=== PATIENT | male | born 1990 | race Caucasian/White ===

== ENCOUNTER 2019-09-21 06:17 | Emergency (ER) | payer OTHER, SELFPAY ==
[2019-09-21 06:26] VITALS: BP 140/93; PULSE 99; RESP 16; TEMP 36.5; O2SAT 100
--- NOTE | 2019-09-21 06:49 | ED.DENTAL ---
HPI - Dental/Oral General Chief complaint: Dental/Oral Stated complaint: TOOTH PAIN Time Seen by Provider: 09/21/19 06:37 Source: patient History of Present Illness HPI Narrative: 29 yo male who presents with c/o left lower jaw pain and swelling starting on Thursday. Patient states he notice notice pain to tooth in lower jaw. He has swelling that has gradually worsened. He states he started taking some old Amoxicillin on Thursday and he has called to make an appointment with his dentist. He has come to ER today because he has worsening pain to left lower jaw and pain with swallowing. He denies fever, nausea or vomiting. He denies any difficulty breathing. Location: Tooth # (19) Onset (ago): day(s) (5) Duration: constant Severity: severe Relieving factors: NSAIDs Exacerbating factors: swallowing Context: history of dental caries Associated symptoms: gum swelling and pain with swallowing Related Data Allergies Allergy/AdvReac Type Severity Reaction Status Date / Time No Known Allergies Allergy Unverified 09/21/19 06:32 Review of Systems Review of Systems: All systems reviewed & are unremarkable except as noted in HPI and below Constitutional: Constitutional: Denies chills, Denies fever(s) and Denies weakness ENT: Denies vertigo and Denies sore throat Cardiovascular: Cardiovascular: Denies chest pain Respiratory: Respiratory: Denies cough and Denies dyspnea Gastrointestinal: Gastrointestinal: Denies nausea and Reports vomiting [facility] Past Medical History Medical History (Updated 09/21/19 @ 08:12 by Marifer Graf MD) Healthy adult Surgical History Surgical History (Updated 09/21/19 @ 07:29 by Marifer Graf MD) No history of previous surgery Social History Social History (Updated 09/21/19 @ 07:29 by Marifer Graf MD) Smoking packs per day: 0.5 Smoking cigarettes per day: 10.0 Smoking status: Current every day smoker Alcohol intake: current Alcohol use details: socially Substance use: never Exam Const: General: no acute distress and alert Orientation/consciousness: patient oriented x3 HENMT: Head: normocephalic and atraumatic General nose exam: Normal external nose present and Normal nares present Mouth: Yes Normal oral and palatal mucosa present, Yes lip normal, No tongue abnormal and No trismus Teeth and gingiva: abnormal tooth and associated gingiva (dental marleen and tenderness at tooth 19) and caries Throat: posterior oropharynx normal, tonsils normal and uvula midline Other: tenderness to left lower jaw , left submental with painful lymph node at angle, no swelling or tenderness to floor mouth Neck: Neck: lymphadenopathy Chest: Chest palpation & inspection: normal inspection of the chest Resp: Effort & Inspection: normal respiratory effort Auscultation: clear to auscultation bilaterally Skin: General skin exam: normal color Rashes: no rashes Neuro: General: patient oriented x3 and moves all extremities Course Course Emergency Course: Patient presented with left lower dental abscess. No site seen that can be I and D. He was given dose and IV antibiotics and pain medication. He states his pain has improved. HE states he has appointment with oral surgery on Thursday. He discussed return precautions. Vital Signs Vital signs: Vital Signs Temperature 97.7 F 09/21/19 06:26 Pulse Rate 99 09/21/19 06:26 Respiratory Rate 16 09/21/19 06:26 Blood Pressure 140/93 H 09/21/19 06:26 Pulse Oximetry 100 09/21/19 06:26 Temperature 97.7 F 09/21/19 06:26 Pulse Rate 95 09/21/19 08:28 Respiratory Rate 15 09/21/19 08:28 Blood Pressure 132/85 09/21/19 08:28 Pulse Oximetry 99 09/21/19 08:28 Discharge Plan Discharge Clinical Impression: Dental abscess Patient Disposition: Home, Self-Care Condition: Stable Instructions: Antibiotic Form, Dental Abscess (ED) Additional Instructions: Today you were started on antibiotic
[2019-09-21] MEDS: KETOROLAC 30 MG/ML VIAL (*BKC) IV PUSH (06:56)
[2019-09-21] MEDS: CLINDAMYCIN 600 MG/NS 50 ML 600 MG/50 ML PIGGYBACK 100 MG IVPB (07:17)
[2019-09-21 08:28] VITALS: BP 132/85; PULSE 95; RESP 15; O2SAT 99
== END 2019-09-21 08:31 | disposition home or self-care (01) ==
PROVIDERS: Emergency Provider General Practice
DX: K04.7 Periapical abscess without sinus (principal)
CPT/HCPCS: 96365; 96375; 99284; J1885

== ENCOUNTER 2021-11-06 13:30 | Outpatient (RCR) | payer MEDICAID, OTHER, SELFPAY ==
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
--- NOTE | 2021-11-15 12:01 | PCOTNOTE ---
Patient did not show up for scheduled appointment this date. Called patient, who did not answer, and left voicemail informing of missed appointment and reminded of next scheduled appointment.
--- NOTE | 2021-11-18 12:46 | PCOTNOTE ---
OCCUPATIONAL THERAPY DISCHARGE NOTIFICATION 11/18/21 Patient:Ryne Suresh Date of :1990 Patient has not returned for any further treatments since 11/06/2021, therefore he will be discharged at this time. Patient?s initial visit was on 10/24/2021 and he had a total of 2 subsequent treatment visits. Unfortunately he is being discharged due to poor therapy attendance. No formal re-assessment was able to be completed as he did not show today for his re-evaluation appointment. Thank you for referring this patient to [facility]. Please review, sign, date and return this discharge summary EVERARDO. I have been updated about the patient's current status and I agree with discharge from the above service at this time. Referring Physician Date Referring Physician: Dr. Lucian Lino
== END 2021-11-19 09:40 | disposition home or self-care (01) ==
LOC: ANHOT 13:30
DX: S44.02XD Injury of ulnar nerve at upper arm level, left arm, subsequent encounter (principal); W34.00XA Accidental discharge from unspecified firearms or gun, initial encounter
CPT/HCPCS: 97110; 97165; 97530